=== PATIENT | female | born 1985 | race African-American/Black ===

== ENCOUNTER 2019-01-12 09:31 | Day surgery (SDC) | payer OTHER ==
[2019-01-07 15:20] VITALS: BMI 33.4
[2019-01-12] MEDS ORDERED: methylPREDNISolone ACET (DEPO) 40 MG/1 ML VIAL ONE (09:55)
[2019-01-12] MEDS ORDERED: THROMBIN (BOVINE) 5,000 UNIT VIAL TP ONE ×2 (09:55→11:38)
[2019-01-12] MEDS ORDERED: GUM MASTIC/STORAX/MSAL/ALCOHOL 1 DRP DROPSBTL MC ONE (09:55)
[2019-01-12] MEDS ORDERED: LIDOCAINE 1%/EPI 1:100000 (20 ML MULTI DOSE VIAL) ONE (09:55)
[2019-01-12] MEDS ORDERED: DEXAMETHASONE SOD PHOSPHATE/PF 10 MG/ML SDV ONE (09:57)
[2019-01-12] MEDS ORDERED: BUPIVACAINE HCL/PF (5 MG/ML) 30 ML VIAL IJ ONE (09:57)
[2019-01-12] MEDS ORDERED: MIDAZOLAM HCL 2 MG/2 ML SINGLE DOSE VIAL ONE ×3 (09:57→11:28)
[2019-01-12] MEDS ORDERED: DEXAMETHASONE SOD PHOSPHATE 4 MG/1 ML VIAL ONE (10:09)
[2019-01-12] MEDS ORDERED: ceFAZolin SODIUM 1 GM VIAL ONE (10:09)
[2019-01-12] MEDS ORDERED: ONDANSETRON 4 MG/2 ML VIAL ONE ×2 (10:09→13:06)
[2019-01-12] MEDS ORDERED: oxyCODONE HCL 10 MG SUSTAINED ACTING TABLET ONE (10:23)
--- NOTE | 2019-01-12 10:37 | HP ---
History & Physical Update - History History: No Change - Physical Physical: No Change - Assessment Assessment: No Change - Plan Plan: No Change
[2019-01-12] MEDS ORDERED: BUPIVACAINE HCL/PF 0.5% (5MG/ML) 10 ML VIAL ONE (10:40)
[2019-01-12] MEDS ORDERED: LIDOCAINE 1%/EPI 1:100000 (50 ML MULTI DOSE VIAL) INF ONE (11:20)
[2019-01-12] MEDS ORDERED: GELATIN SPONGE,ABSORBABLE 1 GM PACKET TP ONE (11:39)
[2019-01-12] MEDS ORDERED: oxyCODONE HCL 5 MG TABLET PO PRN (11:46)
[2019-01-12] MEDS ORDERED: ONDANSETRON 4 MG/2 ML VIAL IVPUSH PRN (11:46)
[2019-01-12] MEDS ORDERED: LACTATED RINGERS SOLUTION 1,000 ML IV SCH (12:00)
[2019-01-12] MEDS ORDERED: methylPREDNISolone ACET (DEPO) 40 MG/1 ML VIAL IM ONE (12:17)
--- NOTE | 2019-01-12 12:51 | OP ---
Operative Note - Note: Operative Date: 01/12/19 Pre-Operative Diagnosis: lumbar stenosis, disc herniation L5-S1 Operation: laminectomy of L5-S1 with microdisectomy Surgeon: Nathan Coleman Teacher Vocational Training: Nyasia Burgess Anesthesiologist/CLASSIFIED AD CLERK: Pancho Dockery Anesthesia: Spinal Specimens Removed: disc L5-S1 Estimated Blood Loss (mls): 20 Fluid Volume Replaced (mls): 800 Operative Report Dictated: Yes
--- NOTE | 2019-01-12 12:52 | SURG ---
Surgery Medical Coding Instructor Note Medical Coding Instructor: Nyasia Burgess PA-C Date of Service: 01/12/19 Diagnosis: lumbar stenosis, disc herniation L5-S1 Procedure: laminectomy of L5-S1 with microdisectomy I was present for the entirety of the operative procedure. For further detail, please refer to operative report. Visit type - Case Type Case Type: Scheduled - Emergency Emergency Visit: No - New patient This patient is new to me today: Yes Date on this admission: 01/12/19
[2019-01-12] MEDS ORDERED: ONDANSETRON 4 MG/2 ML VIAL IVPUSH ONE (13:05)
[2019-01-12 14:42] VITALS: TEMP 97.4
[2019-01-12 15:20] VITALS: BP 114/68; PULSE 88
--- NOTE | 2019-01-12 21:31 | OP ---
DATE OF OPERATION: 01/12/2019 PREOPERATIVE DIAGNOSIS: L5-S1 spinal stenosis. POSTOPERATIVE DIAGNOSIS: L5-S1 spinal stenosis. PROCEDURE PERFORMED: L5-S1 laminectomy. SURGEON: Nathan Coleman MD SENIOR W[employer] TECHNICIAN: DEUCE Whalen ESTIMATED BLOOD LOSS: 50 mL. IV FLUIDS: Per Anesthesia. ANESTHESIA: Spinal/TLIP. COMPLICATIONS: None. DISPOSITION: The patient was brought to the PACU in stable condition. INDICATIONS FOR SURGERY: The patient is a 33-year-old female who has been suffering from pain from her back down her left leg. X-rays and MRI were completed, which noted she had spinal stenosis at L5-S1 secondary to a herniated disk. She had gone through an exhaustive course of treatment for this, which included medications, physical therapy as well as injections. Unfortunately, her pain continued to persist despite all this. At this point, risks, benefits, and alternatives were discussed, and the patient consented to surgery. DESCRIPTION OF PROCEDURE: The patient was brought to the operating room by the Anesthesia staff. After appropriate patient identification was performed, spinal anesthesia was given. TLIP block was also given. The patient was able to position herself prone onto the Castro frame with all areas and bony prominences well padded at this time. Two needles were placed into her back to casandra off the L5-S1 segment. X-ray was taken to confirm this was correct. The needle was removed, and 10 mL of lidocaine with epinephrine was injected into her back. At this time, her back was prepped and draped in a sterile manner. At this point, a time-out was completed. An incision was made from the top of L5 down to the bottom of S1. Dissection was carried down to the fascia. Fascia was split open at this time, and appropriate retractor was then placed in. A spinal needle was placed onto the L5 lamina to casandra off the L5-S1 level. X-rays were taken to confirm this was correct. Needle was removed, and the interspinous ligament at L5-S1 was removed. The microscope was brought in. Portions of the L5-S1 lamina were removed. The flavum was identified and removed. The thecal sac was identified. It was mobilized medially. Disk herniation was noted. It was removed. Portions of the inferior and superior facets were removed to complete a foraminotomy. By the end of the procedure, the S1 nerve root appeared to be well decompressed. All bleeding was well controlled at this time. Steri-Strips was placed over the nerve root. FloSeal was placed over that. The fascia was closed with a No. 1 Vicryl suture. The subcutaneous tissue was closed with 2-0 Vicryl suture. The skin was closed with 3-0 Monocryl suture. Dermabond was applied. Steri-Strips were applied. A sterile dressing was applied. The patient was placed supine on the OR bed and brought to the PACU in stable condition. Quin[place] KRAFT/[id number]
--- NOTE | 2019-01-14 16:45 | PATH ---
Surgical Pathology Report Patient Name: ANALY STARR [facility]. Rec. #: [id number] /Age/Gender: 1985 (Age: 33) / F Account: [id number] Location: [facility] AMBUL[facility] Taken: 01/12/2019 Received: 01/12/2019 Reported: 01/14/2019 Physicians: Nathan Coleman M.D. Specimen(s) Received L5-S1 DISC Clinical History Spinal stenosis Final Diagnosis L5-S1 DISC, DISCECTOMY: FIBROCARTILAGINOUS TISSUE WITH FIBROSIS AND DEGENERATIVE CHANGE. SEPARATE FRAGMENTS OF BONE WITH NO SIGNIFICANT PATHOLOGIC CHANGES. Electronically Signed Livia Solorio M.D. Gross Description Received in formalin labeled "L5-S1 disc," is a 2.1 x 1.4 x 0.3 cm aggregate of weston fragments of fibrocartilaginous tissue. The specimen is submitted in toto in one cassette. 01/13/201901/13/2019
== END 2019-01-12 15:20 | disposition home or self-care (01) ==
LOC: FASU 09:31
PROVIDERS: ATTEND Orthopaedic Surgery Orthopaedic Surgery of the Spine
PROC: 01NB0ZZ Release Lumbar Nerve, Open Approach (ICD-10-PCS; principal; 2019-01-12 11:35)
DX: M48.07 Spinal stenosis, lumbosacral region (principal)
CPT/HCPCS: 72100-TC-FY; 84703; 88304-TC; 94760